=== PATIENT | female | born 2000 | race American Indian/Alaskan Native ===

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

== ENCOUNTER 2019-01-18 16:11 | Emergency (ER) | payer OTHER ==
[2019-01-18 16:39] VITALS: BP 164/74
--- NOTE | 2019-01-18 16:39 | Emergency Department Report ---
Blank Doc - Documentation Documentation: 18 yold female ptresents with 2 weeks of headache denies trauma,injuries ACC eval
[2019-01-18] MEDS ORDERED: TYLENOL PO ONE (19:39)
[2019-01-18] MEDS ORDERED: BENADRYL PO ONE (19:39)
[2019-01-18] MEDS ORDERED: REGLAN PO ONE (19:39)
[2019-01-18] MEDS ORDERED: DECADRON IV ONE (19:39)
--- NOTE | 2019-01-18 20:27 | Emergency Department Report ---
ED Headache HPI - General Chief Complaint: Headache Stated Complaint: NECK/ABD/R SIDE PAIN Time Seen by Provider: 01/18/19 16:38 - History of Present Illness Initial Comments: pt is a 18 y/o aaf with hx of headaches who presents for right sided headache for past 2 weeks headache is intermittent 4/10 sharp no n/v no ear or no sob wheezing no stridor, no dizziness no lightheadeness no n/v no photophobia, throat pain 3/10 with swallowing described as burning, pain is exacerbated by stress pain is relieved by rest and nsaids, pt states she has not see PCP in 1 yrs. Timing/Duration: other (2 weeks ) Quality: moderate Head Injury Location: temporal (right ) Recent Head Trauma: frequent headaches Modifying Factors: improves with: other (activity ) Associated Symptoms: nasal congestion Allergies/Adverse Reactions: Allergies No Known Allergies Allergy (Verified 10/20/16 09:04) Home Medications: Ambulatory Orders Acetaminophen [Acetaminophen 8 Hour] 650 mg PO Q8H #30 tablet.er 10/20/16 Acetaminophen [Acetaminophen TAB] 1,000 mg PO Q6HR PRN #30 tablet 01/18/19 Metoclopramide [Reglan] 10 mg PO Q6H PRN #30 tablet 01/18/19 diphenhydrAMINE [Benadryl CAP] 25 mg PO Q6HR PRN #30 capsule 01/18/19 ED Review of Systems ROS: Stated complaint: NECK/ABD/R SIDE PAIN Other details as noted in HPI Constitutional: denies: chills, fever Eyes: denies: eye pain, eye discharge, vision change ENT: throat pain, congestion. denies: ear pain Respiratory: denies: cough, shortness of breath, wheezing Cardiovascular: denies: chest pain, palpitations Endocrine: no symptoms reported Gastrointestinal: denies: abdominal pain, nausea, vomiting, diarrhea Genitourinary: as per HPI Musculoskeletal: denies: back pain, joint swelling, arthralgia Skin: denies: rash, lesions Neurological: headache. denies: weakness, numbness, paresthesias, confusion, vertigo Psychiatric: denies: anxiety, depression Hematological/Lymphatic: denies: easy bleeding, easy bruising ED Past Medical Hx - Past Medical History Previous Medical History?: No Additional medical history: OBESITY - Surgical History Past Surgical History?: No - Social History Smoking Status: Never Smoker Substance Use Type: None - Medications Home Medications: Home Medications Medication Instructions Recorded Confirmed Last Taken Type Acetaminophen [Acetaminophen 8 650 mg PO Q8H #30 tablet.er 10/20/16 Unknown Rx Hour] Acetaminophen [Acetaminophen TAB] 1,000 mg PO Q6HR PRN #30 tablet 01/18/19 Unknown Rx Metoclopramide [Reglan] 10 mg PO Q6H PRN #30 tablet 01/18/19 Unknown Rx diphenhydrAMINE [Benadryl CAP] 25 mg PO Q6HR PRN #30 capsule 01/18/19 Unknown Rx ED Physical Exam - General Limitations: No Limitations General appearance: alert, in no apparent distress - Head Head exam: Present: atraumatic, normocephalic, normal inspection - Eye Eye exam: Present: normal appearance, PERRL, EOMI. Absent: conjunctival injection, nystagmus, periorbital swelling, periorbital tenderness Pupils: Present: normal accommodation - ENT ENT exam: Present: mucous membranes moist, TM's normal bilaterally, normal external ear exam - Expanded ENT Exam Expanded Ear exam: Present: normal external inspection Mouth exam: Present: tongue normal. Absent: trismus Teeth exam: Present: normal inspection Throat exam: Positive: tonsillar erythema, tonsillomegaly, other (uvula midline no stridor no swelling airway is patent ). Negative: tonsillar exudate, R peritonsillar mass, L peritonsillar mass - Neck Neck exam: Present: normal inspection, full ROM, lymphadenopathy. Absent: tenderness, meningismus, thyromegaly - Expanded Neck Exam Expanded Neck exam: Absent: tenderness, midline deformity, anterior neck swelling, thyroid mass, carotid bruit, tracheal deviation - Respiratory Respiratory exam: Present: normal lung sounds bilaterally. Absent: respiratory distress, rhonchi, chest wall tenderness - Cardiovascular Cardiovascular Exam: Present: regular rate, normal rhythm, normal heart sounds. Absent: systolic murmur, diastolic murmur, rubs, gallop - GI/Abdominal GI/Abdominal exam: Present: soft, normal bowel sounds. Absent: distended, tenderness, guarding, rebound, rigid, bruit, hernia - Rectal Rectal exam: Present: deferred - Extremities Exam Extremities exam: Present: normal inspection, full ROM, normal capillary refill. Absent: tenderness - Back Exam Back exam: Present: normal inspection, full ROM. Absent: tenderness, CVA tenderness (R), CVA tenderness (L), muscle spasm, paraspinal tenderness, vertebral tenderness, rash noted - Neurological Exam Neurological exam: Present: alert, CN II-XII intact, normal gait, reflexes normal. Absent: motor sensory deficit - Psychiatric Psychiatric exam: Present: normal affect, normal mood - Skin Skin exam: Present: warm, dry, intact, normal color. Absent: rash ED Course Vital Signs 01/18/19 16:37 Temperature 98.2 F Pulse Rate 72 Respiratory 20 Rate Blood Pressure 164/74 O2 Sat by Pulse 100 Oximetry ED Medical Decision Making - Medical Decision Making Headache is improved to 2/10 , plan: tylenol, benadryl , and reglan follow up with pcp in 2-3 days return to ed symptoms worsen. pt verbalized agreement and understnading of discharge plan. Critical care attestation.: If time is entered above; I have spent that time in minutes in the direct care of this critically ill patient, excluding procedure time. ED Disposition Clinical Impression: Headache Qualifiers: Headache type: unspecified Headache chronicity pattern: acute headache Intractability: not intractable Qualified Code(s): R51 - Headache Disposition: DC-01 TO HOME OR SELFCARE Is pt being admited?: No Does the pt Need Aspirin: No Condition: Stable Instructions: Acute Headache (ED) Prescriptions: Acetaminophen [Acetaminophen TAB] 1,000 mg PO Q6HR PRN #30 tablet PRN Reason: Headache diphenhydrAMINE [Benadryl CAP] 25 mg PO Q6HR PRN #30 capsule PRN Reason: Headache Metoclopramide [Reglan] 10 mg PO Q6H PRN #30 tablet PRN Reason: Headache Referrals: [facility] MD VICKEY [Primary Care Provider] - 3-5 Days KIAH SANDERSON MD [Referring] - 3-5 Days Forms: Work/School Release Form(ED) Time of Disposition: 20:37
== END 2019-01-18 20:46 | disposition home or self-care (01) ==
LOC: ED 16:11
DX: R51 Headache (principal); E66.9 Obesity, unspecified; Z68.41 Body mass index [BMI] 40.0-44.9, adult
CPT/HCPCS: 96374; 99282; J1100

== ENCOUNTER 2021-02-03 14:43 | Emergency (ER) | payer SELFPAY ==
[2021-02-03 15:20] VITALS: BP 118/95
[2021-02-03] MEDS ORDERED: diphenhydrAMINE 25 MG/10 ML ORAL LIQUID PO ONE (17:02)
[2021-02-03] MEDS ORDERED: BUTALB/ACETAMINOPHEN/CAFFEINE TAB PO ONE (17:02)
[2021-02-03] MEDS ORDERED: METOCLOPRAMIDE 10 MG TAB PO ONE (17:02)
--- NOTE | 2021-02-03 17:11 | Emergency Department Report ---
ED Headache HPI - General Chief Complaint: Headache Stated Complaint: EXTREME HEADACHE Time Seen by Provider: 02/03/21 16:58 - History of Present Illness Initial Comments: Patient is a 18 female presents emergency room complaints of a right temporal headache that began yesterday. She states that she took ibuprofen with mild relief. She states that she does frequently get headaches similar to this. States typically ibuprofen resolves her headache but reports that this headache will not go away. She denies any fever, nausea, vomiting, diarrhea, neck stiffness, vision changes, numbness, weakness, speech disturbance, gait disturbance. No past medical history. No allergies to medications. Last menstrual cycle last month. She denies any possibility of as she is not sexually active with men. Allergies/Adverse Reactions: Allergies No Known Allergies Allergy (Verified 02/03/21 15:16) Home Medications: Ambulatory Orders Acetaminophen [Acetaminophen 8 Hour] 650 mg PO Q8H #30 tablet.er 10/20/16 Acetaminophen [Acetaminophen TAB] 1,000 mg PO Q6HR PRN #30 tablet 01/18/19 Metoclopramide [Reglan] 10 mg PO Q6H PRN #30 tablet 01/18/19 diphenhydrAMINE [Benadryl CAP] 25 mg PO Q6HR PRN #30 capsule 01/18/19 Butalb/Acetaminophen/Caffeine [Fioricet 50-300-40 mg CAP] 1 cap PO Q8HR PRN #12 cap 02/03/21 ED Review of Systems ROS: Stated complaint: EXTREME HEADACHE Other details as noted in HPI Comment: All other systems reviewed and negative ED Past Medical Hx - Past Medical History Previous Medical History?: No Additional medical history: OBESITY - Surgical History Past Surgical History?: No - Social History Smoking Status: Never Smoker Substance Use Type: None - Medications Home Medications: Home Medications Medication Instructions Recorded Confirmed Last Taken Type Acetaminophen [Acetaminophen 8 650 mg PO Q8H #30 tablet.er 10/20/16 Unknown Rx Hour] Acetaminophen [Acetaminophen TAB] 1,000 mg PO Q6HR PRN #30 tablet 01/18/19 Unknown Rx Metoclopramide [Reglan] 10 mg PO Q6H PRN #30 tablet 01/18/19 Unknown Rx diphenhydrAMINE [Benadryl CAP] 25 mg PO Q6HR PRN #30 capsule 01/18/19 Unknown Rx Butalb/Acetaminophen/Caffeine 1 cap PO Q8HR PRN #12 cap 02/03/21 Unknown Rx [Fioricet 50-300-40 mg CAP] ED Physical Exam - General Limitations: No Limitations General appearance: alert, in no apparent distress - Head Head exam: Present: atraumatic, normocephalic - Eye Eye exam: Present: normal appearance, PERRL, EOMI. Absent: periorbital swel ling, periorbital tenderness Pupils: Present: normal accommodation - ENT ENT exam: Present: mucous membranes moist - Neck Neck exam: Present: normal inspection, full ROM. Absent: tenderness, meningismus - Respiratory Respiratory exam: Present: normal lung sounds bilaterally. Absent: respiratory distress, wheezes, rales, rhonchi, stridor, chest wall tenderness, accessory muscle use, decreased breath sounds, prolonged expiratory - Cardiovascular Cardiovascular Exam: Present: regular rate, normal rhythm, normal heart sounds. Absent: systolic murmur, diastolic murmur, rubs, gallop - Neurological Exam Neurological exam: Present: alert, oriented X3, CN II-XII intact, normal gait, other (normal finger to nose, normal heel to edwards, 5/5 muscle strength in the BUE/BLE, sensation intact throughout, no focal neuro deficit). Absent: motor sensory deficit - Psychiatric Psychiatric exam: Present: normal affect, normal mood - Skin Skin exam: Present: warm, dry, intact ED Course Vital Signs 02/03/21 15:18 Temperature 98.7 F Pulse Rate 68 Respiratory 18 Rate Blood Pressure 118/95 O2 Sat by Pulse 100 Oximetry ED Medical Decision Making - Medical Decision Making Patient is a 18 female presents emergency room complaints of a right temporal headache that began yesterday. She states that she took ibuprofen with mild relief. She states that she does frequently get headaches similar to this. States typically ibuprofen resolves her headache but reports that this headache will not go away. She denies any fever, nausea, vomiting, diarrhea, neck stiffness, vision changes, numbness, weakness, speech disturbance, gait disturbance. No past medical history. No allergies to medications. Last menstrual cycle last month. She denies any possibility of as she is not sexually active with men. Vitals are normal. No focal neuro deficits on exam, no meningeal signs, no signs of sinusitis, she has had no trauma. Symptoms and examination appear most consistent with migraine headache. Patient given medications while in the emergency department with improvement of symptoms. Patient given prescription for medication. Advised patient Please take medication as prescribed as needed. Increase your water intake. Follow-up with your primary care doctor. Return to emergency room for new or worsening symptoms. Critical care attestation.: If time is entered above; I have spent that time in minutes in the direct care of this critically ill patient, excluding procedure time. ED Disposition Clinical Impression: Headache Qualifiers: Headache type: unspecified Headache chronicity pattern: acute headache Intractability: not intractable Qualified Code(s): R51.9 - Headache, unspecified Disposition: DC- TO HOME OR SELFCARE Is pt being admited?: No Does the pt Need Aspirin: No Condition: Stable Additional Instructions: Please take medication as prescribed as needed. Increase your water intake. Follow-up with your primary care doctor. Return to emergency room for new or worsening symptoms. Prescriptions: Butalb/Acetaminophen/Caffeine [Fioricet 50-300-40 mg CAP] 1 cap PO Q8HR PRN #12 cap PRN Reason: headache Referrals: [facility] [Provider Group] - 2-3 Days CAROLYN AYALA MD [Staff Physician] - 2-3 Days Time of Disposition: 18:49 Print Language: MALTESE
== END 2021-02-03 19:06 | disposition home or self-care (01) ==
LOC: ED 14:43
DX: R51.9 Headache, unspecified (principal); E66.8 Other obesity; Z79.899 Other long term (current) drug therapy
CPT/HCPCS: 99282; Q0163